=== PATIENT | female | born 1975 | race Hispanic/Latino ===

== ENCOUNTER 2017-01-29 07:36 | Day surgery (SDC) | payer OTHER ==
[2017-01-29] VITALS (13 sets, daily range): BP systolic 114–148; BP diastolic 60–98; PULSE 56–73; RESP 16–25; O2SAT 93–100
[~2017-01-29] VITALS: Ht 162.6 cm; Wt 111.0 kg
[~2017-01-29 07:36] MED LIST: CeFAZolin Inj 2 GM in IV Premix 1 EACH IV ONE; IBUP800T28 PO; OXYC-388 PO
[2017-01-29] MEDS ORDERED: fentaNYL-PF 50 mCg/mL 2 mL Inj ONE (07:37)
[2017-01-29] MEDS ORDERED: Dexamethasone 4 mg/mL Inj ONE (07:37)
[2017-01-29] MEDS ORDERED: MetoCLOpramide 5 mg/mL 2 mL Inj ONE (07:37)
[2017-01-29] MEDS ORDERED: Propofol 10,000 mCg/mL 20 mL Inj ONE (07:37)
[2017-01-29] MEDS ORDERED: Rocuronium 10 mg/mL 5 mL Inj ONE (07:37)
[2017-01-29] MEDS: Lactated Ringer's 1,000 ML IV SCH ×2 (07:42→11:47)
--- NOTE | 2017-01-29 09:11 | PCM.HPANE ---
Patient Data Surgeon Admitting Provider: Attending Provider:Carlo Dyer MD Primary Care Physician:Ashley Peterson PA-C Other Provider:Leandra Morrisingham Anesthesia Reason for Visit Abnormal Uterine Bleeding Ht/WT & BMI Height (Feet): 5 Height (Inches): 4.00 Weight (Kilograms): 111.0 Body Mass Index 41.00 Allergies Coded Allergies: No Known Allergies (Unverified , 05/07/16) Past Anesthesia History Anesthesia History: Denies:: Abnormal Airway, Anesthesia Reactions ("wake up" during surgery), Difficult Intubation, Fam Anesthesia Reaction, Fam Malignant Hypertherm, Malignant Hyperthermia Diabetes History Hx Diabetes?: No MRSA MRSA: No Medications Home Meds Incl Beta Santo: No Reported Medications oxyCODONE-Aspirin 5-325 mg 1 Each Tablet1 Tablet PO Q6H PRN For Pain Ref 0 01/28/17 Ibuprofen 800 Mg Pyraqm661 Mg PO TID PRN For Pain Ref 0 01/28/17 Discontinued Reported Medications Multivits Min/Iron/FA/Herb#186 (Hair, Skin & Nails Caplet)1 Each Tablet1 Each PO DAILY 05/07/16 oxyCODONE 5 Mg Capsule5 Mg PO Q6H PRN For Pain Ref 0 05/07/16 History HEENT History: Positive for:: TMJ (grinds teeth, no nightguard) Denies:: Abnormal Airway Cataracts Difficult Intubation Dysphagia Glaucoma Hearing Problem Sinus Problem Hx of Heart Problems?: Yes Cardiovascular History: Positive for:: Irregular Heartbeat (palpitations last yr, treated with propranolol- cardio w/u neg) Denies:: AICD Chest Pain Edema Heart Murmur Hypertension Pacemaker Other Cardiac History: has not taken propranolol for 2 years- palpitations related to stress Hx of Respiratory Problem?: No Respiratory History: Denies:: Asthma COPD Emphysema Oxygen Administration Pneumonia Tuberculosis Use of C-PAP Machine Hx Neurologic Problems?: No Neurological History: Denies:: Alzheimer's Disease CVA Dementia Dizziness Headaches Multiple Sclerosis Parkinson's Disease Seizures Hx of GI Problems?: No Gastrointestinal History: Denies:: Cirrhosis Gall Bladder Disease Gastroesphageal Reflux Gastrointestinal Bleeding Hepatitis Hiatal Hernia Liver Disease Rectal Bleeding Hx of Problems?: No Genitourinary History: Denies:: Kidney Stones Urinary Tract Infection Female Hx: Denies:: Currently Problems with Breasts? Skin History: Denies:: History Skin Disorders? Pressure Ulcers Hx Musculoskeletal Problems?: Yes Musculoskeletal History: Positive for:: Musculoskeletal Trauma (knee injury to left - s/p two surgeries) Denies:: Back Injury Fibromyalgia Joint Replacement Osteoarthritis Systemic Lupus Hx of Psycho/Social Problems?: No Psycho Social History: Denies:: Anxiety Hx Depression Hx Surgeries?: Yes (knee arthroscopies, hysteroscopy with ablation) Hx Any Other Health Problems?: Yes Other History: Denies:: Cancer Thyroid Disease History Blood Transfusions: Denies:: Blood Transfusions Hx Diabetes: No Hx Alcohol Use: YesHx Substance Use: No Smoking Status: Former Smoker Have You Smoked inLast 12 mo: No Stop/Bang P-Blood Pressure: treated: No B- Body Mass Index > 35 kg/m2: Yes A- Age over 50: No N- Neck Large Circumference: Yes G- Gender Male: No ROSALVA Risk Assessment: Low Risk, <3 Yes Risk Assessment Category Category 1A: Patient has history of documented sleep apnea, and HAS NOT received any narcotic, sedative or anesthesia administration during this stay. Category 1B: Patient has history of documented sleep apnea, and HAS received any narcotic , sedative or anesthesia administration during this stay Category 2: Patient has SUSPECTED Obstructive Sleep Apnea, and HAS received any narcotic , sedative or anesthesia administration during this stay. Category 3: Patient has SUSPECTED Obstructive Sleep Apnea and HAS NOT received narcotic, sedative or anesthesia administration during this stay. Category 4: Outpatient in Procedural Areas with known sleep apnea or who screen positive for High Risk via the STOP/BANG questionnaire. Exam Exam Vital Signs Vital Signs Date Time Temp Pulse Resp B/P Pulse Ox O2 Delivery O2 Flow Rate FiO2 01/29/17 07:56 37.0 71 18 148/98 99 Room Air General Appearance: Alert HEENT/AIRWAY: MP 1 Lungs: Clear to Auscultation Heart: Exam Unremarkable Meds/Labs/Diagnostics Admission Meds Current Medications Lactated Ringer's (Lr) 1,000 ml @ 120 mls/hr Q8H20M IV Last administered on t 07:42; Start 01/29/17 at 05:00; Stop 01/29/17 at 13:19 Plan Impression Patient chart reviewed, patient interviewed and anesthestic plan with risks, benefits, and alternatives discussed, and informed consent obtained. NPO Status: 05/10 at 2230 ASA Physical Status: ASA1 Normal Healthy Anesthetic Plan: GA Bene/Risks/Altern/Consents: Yes HP Complete Prior to Induction: Yes Marcos Peterson MD Jan 29, 2017 09:11
[2017-01-29] MEDS ORDERED: Lactated Ringer's 1,000 ML IV SCH (12:06)
[2017-01-29] MEDS ORDERED: Lactated Ringer's 500 ML IV PRN (12:06)
[2017-01-29] MEDS ORDERED: Ondansetron 2 mg/mL 2 mL Inj IVPUSH PRN ×2 (12:10→15:45)
[2017-01-29] MEDS ORDERED: Dexamethasone 4 mg/mL Inj IVPUSH PRN (12:10)
[2017-01-29] MEDS ORDERED: fentaNYL-PF 50 mCg/mL 2 mL Inj IVPUSH PRN (12:10)
[2017-01-29] MEDS ORDERED: Phenylephrine 10,000 mCg/mL Inj IVPUSH PRN (12:10)
[2017-01-29] MEDS ORDERED: EPHEDrine Sulfate 50 mg/mL Inj IVPUSH PRN (12:10)
[2017-01-29] MEDS ORDERED: MetoCLOpramide 5 mg/mL 2 mL Inj IVPUSH PRN ×2 (12:10→15:45)
[2017-01-29] MEDS ORDERED: Bupivacaine-MPF 0.5% W/EPI 30 mL Inj INFILTRATE ONE (12:25)
[2017-01-29] MEDS ORDERED: Lactated Ringer's 1,000 ML IV ONE (12:41)
[2017-01-29] MEDS: HYDROmorphone 1 mg/mL Inj IVPUSH PRN ×2 (14:58→16:07)
--- NOTE | 2017-01-29 15:10 | PCM.ANEP1 ---
Post Anesthesia Phase 1 PACU Phase 1 Assessment Vital Signs Vital Signs Date Time Temp Pulse Resp B/P Pulse Ox O2 Delivery O2 Flow Rate FiO2 01/29/17 07:56 37.0 71 18 148/98 99 Room Air Anesthetic Administered: GA Level of Alertness: Sleeping, hard to arouse MASON's with Equal Strength: Yes Pain: No Nausea or Vomiting: No Oxygen Delivery: Simple Mask Lungs: Clear to Auscultation Dermatome Level: Full Sensation Summary hr 60 sat 99 120/69 temp 36.2 rr 10 Marcos Peterson MD Jan 29, 2017 15:10
[2017-01-29] MEDS ORDERED: HYDROmorphone 1 mg/mL Inj IVPUSH PRN (15:45)
[2017-01-29] MEDS ORDERED: oxyCODONE-Acetamin 5-325 mg Tablet PO PRN (15:45)
--- NOTE | 2017-01-29 16:50 | PCM.ANEP2 ---
Post Anesthesia Evaluation ASA/CMS Post Anesthesia VS in Patient's Normal Range?: Yes Resp Stable; Airway Patent?: Yes CV Function & Hydration Stable: Yes Mental Status Recovered?: Yes Pain control Satisfactory?: Yes N/V Control Satisfactory?: Yes Marcos Peterson MD Jan 29, 2017 16:50
--- NOTE | 2017-01-30 00:07 | OP ---
[address] [address] OPERATIVE REPORT PATIENT: LESLEY DOUGLAS : 1975 MR#: [id number] ADMIT: 01/29/2017 JOB ID: [id number] DATE OF SURGERY: 01/29/2017 PREOPERATIVE DIAGNOSIS(ES): 1. Abnormal uterine bleeding. 2. Dysmenorrhea. 3. Pelvic pain. POSTOPERATIVE DIAGNOSIS(ES): 1. Abnormal uterine bleeding. 2. Dysmenorrhea. 3. Pelvic pain. 4. Endometriosis. PROCEDURE PERFORMED: 1. Total laparoscopic hysterectomy with a left salpingo-oophorectomy. 2. Lysis of adhesions. 3. Cystoscopy of the bladder. SURGEON: Carlo Dyer MD PRODUCTION ROUSTABOUT: Girish Osei MD RESIDENT: Ashley Perry DO, PGY1 ANESTHESIA: General. ESTIMATED BLOOD LOSS: 100 mL. COMPLICATIONS: None. PATHOLOGY SENT: Uterus with portions of left and right fallopian tube and left ovary. FINDINGS AT TIME OF SURGERY: Intraoperative findings showing the left ovary and pelvic sidewall with multiple endometriomas. The left ovary was densely adhered to the left cornual region and posterior uterus. There were dense adhesions of the posterior cul-de-sac. The retroperitoneal space bilaterally were somewhat scarred in with endometriosis. Otherwise, the anterior cul-de-sac was free of adhesions. Survey of the upper abdomen was normal. There was no evidence of any endometriosis in the upper abdomen. The gallbladder and liver were normal in appearance. On cystoscopy findings, there was bilateral spillage of urine from both ureters at the end of procedure. There were no sutures appreciated in the bladder and no defects were appreciated. PROCEDURE: The patient was taken to the operating room, where her general anesthesia was obtained without difficulty. She was placed in a lithotomy position in the [facility] and prepared and draped in the normal sterile fashion. A bivalve speculum was inserted into the patient's vagina. The cervix was grasped with a single-tooth tenaculum. A large VCare uterine manipulator was inserted without difficulty. A Tay catheter was placed. Our attention was then turned to the patient's abdomen, where a total laparoscopic hysterectomy was performed. The umbilicus was injected with 10 mL of 0.5% Marcaine with epinephrine. A 5 mm skin incision was made at the base of the patient's umbilicus. A Veress needle was inserted at the base of the umbilicus and a pneumoperitoneum was obtained with CO2 gas to 15 mmHg. The applied 5 mm bladed trocar was then inserted directly into the patient's peritoneal cavity using the Visiport function of this trocar. Intraperitoneal placement was confirmed with the laparoscope. Survey of the abdomen and pelvis were noted above. A right and left lower quadrant port site were marked off, injected with 0.5% Marcaine with epinephrine. A 5 mm skin incision was made, and 5 mm blunt trocars were inserted under direct visualization. The patient was placed in 30 degrees of Trendelenburg, and the uterus was mobilized. The left ovary was adhered to the left cornual region of the uterus. It contained multiple endometriomas. The endometriomas were also involving the broad and cardinal ligaments, mainly on the left. At this point, bilateral salpingectomies were performed to help with visualization, and the fallopian tubes were removed through the ports. The round ligaments were transected bilaterally. The posterior leaf of the broad ligament was opened. The infundibulopelvic ligament was transected with a Bovie cautery device on the left. The left ovary was then detached from the uterus and placed in the anterior cul-de-sac to help with visualization. The anterior leaf of the broad ligament was opened anteriorly creating a bladder flap. This was done bilaterally with the Bovie cautery device. Extensive dissection and lysis of adhesion was done on the left broad ligament due to dense adhesions from endometriosis. In a similar fashion, the right anterior broad leaf of the broad ligament was opened. The bladder was dissected away and the V-Care cup was identified. At this point, the uterine arteries bilaterally were skeletonized to the best of our ability. This was somewhat limited due to the dense scar tissue. The vagina was entered sharply with the Bovie cautery device and the V-Care cup was identified. This incision was carried circumferentially, freeing the uterus from the vagina. The uterus was then removed through the patient's vagina. The left ovary was also removed through the vagina and handed off as pathology. During the dissection of the left broad ligament, a 2nd left upper quadrant port site was also made, and a 5 mm blunt trocar inserted. This was to help with exposure and dissection. The pelvis was then irrigated with copious amounts of normal saline. The vaginal cuff was then reapproximated with a 2-0 V-Loc suture in a running fashion. This was closed in two layers. Good hemostasis was assured. FloSeal was placed over the bed of the left broad ligament to help with hemostasis. All instruments were then removed from the patient's peritoneal cavity and the pneumoperitoneum was released. The skin was closed with 4-0 Monocryl in a subcuticular fashion and Dermabond was applied. All lap, instrument, and needle counts were correct x2 at the end of the procedure. The patient was taken to the recovery room awake, in good condition. CARYN
--- NOTE | 2017-01-31 11:24 | PATH ---
SURGICAL PATHOLOGY Attending Physician:Carlo Dyer, CASE STATUS: Signed Out PATIENT NAME: LESLEY DOUGLAS PID: [id number] : 1975 DATE COLLECTED:01/29/2017 00:00 SPECIMEN: 1: Fallopian Tube, Biopsy 2: Fallopian Tube, Biopsy 3: Uterus +/- tubes/ovaries, except neoplastic, prolapse CLINICAL HISTORY: ABNORMAL UTERINE BLEEDING 1). LEFT FALLOPIAN TUBE 2). RIGHT FALLOPIAN TUBE 3). UTERUS WITH LEFT OVARY FINAL DIAGNOSIS: 1.LEFT FALLOPIAN TUBE: FALLOPIAN TUBE WITH NO PATHOLOGIC ALTERATIONS. 2.RIGHT FALLOPIAN TUBE: FALLOPIAN TUBE WITH NO PATHOLOGIC ALTERATIONS. 3.UTERUS WITH LEFT OVARY: ENDOMETRIOSIS OF UTERINE CERVIX. SMALL INTRAMURAL LEIOMYOMA. OVARY WITH NO PATHOLOGIC ALTERATIONS. ICD10 CODES N80.9 D25.1 GROSS DESCRIPTION: The specimens are received in formalin, labeled with the patient's name, and sublabeled as the following: (1) left tube; (2) right tube; (3) uterus with left ovary. (1) The specimen consists of a fimbriated fallopian tube (length-6.3 cm, diameter-0.5 cm). The surface is terrazas-purple smooth and shiny. The lumen is liao and unremarkable. Section code: (1A) fallopian tube, serially sectioned, customer support representative; (1B) fimbria, bivalved, entirely submitted. (2) The specimen consists of a fimbriated fallopian tube (length-16.6 cm, diameter-0.6 cm). The serosa is terrazas-purple smooth and shiny. The lumen is liao and unremarkable. Section code: (2A) fallopian tube, serially sectioned, customer support representative; (2B) fimbria, bivalved, entirely submitted. (3) The specimen consists of a uterus (218 g, 6.1 cm in AP, 10.5 cm SI, 7.2 cm ML) and a detached ovary (4.4 x 3.0 x 2.8 cm). The second ovary and fallopian tubes are absent. The cervix (2.8 cm AP, 3.6 cm ML) has a transverse os and patent endocervical canal. The endometrium (average thickness-0.1 cm) is liao pink smooth and flat. The myometrium (thickness-up to 3.7 cm) is liao-white with a lacy appearance. The serosa is liao smooth and shiny. The ovary has gomez-yellow smooth shiny flat serosa. The parenchyma is liao-white solid cystic with corpus albicans identified. The cavity is (0.1 cm-2.0 cm) containing clear colorless fluid. The linings are smooth and flat with no excrescences identified. Section code: (3A-3C) anterior cervix; (3D) posterior cervix; (3E-3G) anterior endomyometrium; (3H, 3I) posterior endomyometrium; (3J, 3K) ovary, serially sectioned, customer support representative. 01/30/17 JM MICRO DESCRIPTION: See diagnosis. ICD-9 CODES: CPT CODES: 1: 00134 2: 25469 3: 30380 Electronically Signed Out Deidre eSn MD [facility] [address], [place] [address] Technical component performed at [facility], [facility] [address], [place], [address]
== END 2017-01-29 23:59 | disposition home or self-care (01) ==
LOC: SAS 07:36
PROVIDERS: ATTEND Obstetrics & Gynecology
DX: N93.9 Abnormal uterine and vaginal bleeding, unspecified (principal); N94.6 Dysmenorrhea, unspecified; N80.0 Endometriosis of uterus; D25.1 Intramural leiomyoma of uterus; R10.2 Pelvic and perineal pain; E66.3 Overweight; Z68.41 Body mass index [BMI] 40.0-44.9, adult; Z87.891 Personal history of nicotine dependence